=== PATIENT | male | born 1960 | race Caucasian/White ===

== ENCOUNTER → 2024-01-31 10:43 | Outpatient (REF) | payer OTHER, SELFPAY ==
[2024-01-31 12:49] LABS: % Basophils 0.7 % (0-2); % Eosinophils 3.3 % (0-6); % Immature Granulocytes 0.3 % (0-0.5); % Lymphocytes 19.3 % (20.5-51.1); % Monocytes 7.2 % (1.7-9.3); % Neutrophils 69.2 % (42.2-75.2); Absolute Basophils 0.1 10^3/uL (0-0.2); Absolute Eosinophils 0.2 10^3/uL (0-0.7); Absolute Lymphocytes 1.4 10^3/uL (1.2-3.4); Absolute Monocytes 0.5 10^3/uL (0.1-0.6); Hematocrit 38.1 % (39.0-52.0); Mean Corp Hgb Conc. 31.5 g/dL (33.0-37.0); Mean Corpuscular Hgb 24.4 pg (27.0-31.0); Mean Corpuscular Volume 77.4 fL (80.0-94.0); Nucleated Red Blood Cells % 0 % (-); Platelet Count 217 10^3/uL (130-400); Red Blood Cell Count 4.92 10^6/uL (4.70-6.10); Red Cell Dist. Width 12.8 % (11.5-14.5); White Blood Cell Count 7.2 10^3/uL (4.8-10.8)
[2024-01-31 13:13] LABS: ALT (SGPT) 17 U/L (0-50); AST (SGOT) 19 U/L (17-59); Alkaline Phosphatase 77 U/L (38-126); Blood Urea Nitrogen 23 mg/dl (9-20); Calcium 10.2 mg/dl (8.4-10.2); Carbon Dioxide 26 mmol/L (22-30); Chloride 102 mmol/L (98-107); Glucose 97 mg/dl (70-99); Magnesium 1.6 mg/dl (1.6-2.3); Potassium 5.1 mmol/L (3.5-5.1); Sodium 139 mmol/L (135-145); Total Bilirubin 0.3 mg/dl (0.2-1.3); Total Protein 6.8 g/dl (6.3-8.2); eGFR > 60.00
== END ==
LOC: HWRAD 10:43
PROVIDERS: ATTENDING PHYSICIAN Nurse Practitioner Family; FAMILY PHYSICIAN Internal Medicine
DX: R55 Syncope and collapse (principal); R42 Dizziness and giddiness; R53.1 Weakness
CPT/HCPCS: 36415; 70450; 80053; 83735; 85025

== ENCOUNTER 2024-04-08 17:10 | Inpatient (IN) | payer OTHER, SELFPAY ==
[2024-04-08 11:05] VITALS: BP 105/68
--- NOTE | 2024-04-08 11:09 | ED.PDOC.TRB ---
ED Provider Triage
-
Patient seen by provider in Triage?: Seen in Triage
Initial rapid assessment performed to facilitate ED workup from triage
62-year-old male presenting due to intractable nausea, vomiting, and diarrhea for the past 9 days. Had stool specimens collected last week that were negative for bacterial infection but ova and parasites is reportedly still pending, test be
performed at [facility]. Denies any significant abdominal pain. Feels generally weak, blood pressure has been lower at home and his blood pressure meds were discontinued recently
GEN: Well appearing, NAD, WDWN
HEENT: Oral mucosa moist, no scleral icterus
Cardiac: Regular rate
Lung: No respiratory distress, no tachypnea
MSK: No gross deformity or injuries
Skin: Good color, no pallor or jaundice, no rashes
Neuro: AO x3, moves all extremities freely
Psych: Calm, cooperative
Assessment/plan: Persistent nausea vomiting diarrhea. Stool specimens pending. Check basic labs
[2024-04-08 11:39] LABS: ALT (SGPT) 24 U/L (0-50); AST (SGOT) 18 U/L (17-59); Albumin 4.1 g/dl (3.5-5.0); Alkaline Phosphatase 138 U/L (38-126); Blood Urea Nitrogen 25 mg/dl (9-20); Calcium 9.6 mg/dl (8.4-10.2); Carbon Dioxide 21 mmol/L (22-30); Chloride 101 mmol/L (98-107); Glucose 149 mg/dl (70-99); Potassium 3.9 mmol/L (3.5-5.1); Sodium 140 mmol/L (135-145); Total Bilirubin 0.9 mg/dl (0.2-1.3); eGFR 36.81
[2024-04-08 11:55] LABS: % Basophils 0.7 % (0-2); % Eosinophils 54.8 % (0-6); % Immature Granulocytes 0.3 % (0-0.5); % Lymphocytes 11.7 % (20.5-51.1); % Monocytes 4.3 % (1.7-9.3); % Neutrophils 28.2 % (42.2-75.2); Absolute Basophils 0.1 10^3/uL (0-0.2); Absolute Eosinophils 10.5 10^3/uL (0-0.7); Absolute Immature Granulocytes 0.1 10^3/uL (0-0.05); Absolute Lymphocytes 2.3 10^3/uL (1.2-3.4); Absolute Monocytes 0.8 10^3/uL (0.1-0.6); Absolute Neutrophils 5.4 10^3/uL (1.4-6.5); Hematocrit 45.5 % (39.0-52.0); Hemoglobin 14.3 g/dL (13.0-18.0); Mean Corp Hgb Conc. 31.4 g/dL (33.0-37.0); Mean Corpuscular Hgb 23.5 pg (27.0-31.0); Mean Corpuscular Volume 74.7 fL (80.0-94.0); Mean Platelet Volume 10.4 fL (7.4-10.4); Nucleated Red Blood Cells % 0 % (-); Platelet Count 366 10^3/uL (130-400); Red Blood Cell Count 6.09 10^6/uL (4.70-6.10); Red Cell Dist. Width 14.7 % (11.5-14.5); White Blood Cell Count 19.2 10^3/uL (4.8-10.8)
[2024-04-08 13:45] VITALS: BP 136/81; BMI 27.2
[2024-04-08 13:52] LABS: Lipase 45 U/L (23-300)
--- NOTE | 2024-04-08 14:24 | ED.GENMED ---
History of Present Illness
<Candice Johnson PA-C - Last Filed: 04/08/24 17:35>
General
Chief Complaint: Abdominal Symptoms
Source: patient
Exam Limitations: none
Time Seen by Provider: 04/08/24 13:19
Nursing documentation reviewed up to this point in time: agreed with
History of Present Illness
History of Present Illness:
Patient is a 63-year-old male with history hypertension, hyperlipidemia, type 2 diabetes on Mounjaro presents to the Emergency Department for evaluation of persistent nausea, vomiting, diarrhea for the past 9 days. Patient states that he has had
frequent bouts of diarrhea and multiple instances of nausea and vomiting for the past approximately 10 days. Patient does also endorse subjective fevers at home and intermittent crampy lower abdominal pain. Patient denies any blood in his stool.
Patient was seen by his primary care provider 5 days ago where he had blood work and stool cultures performed. Salmonella and E. coli test were negative although parasitic testing is still pending. Patient is concerned that he has Giardia.
Of note�patient was recently traveling in [place] on a kayak trip approximately 7 to 10 days prior to onset of symptoms. Patient denies any ingestion of undercooked seafood.
Patient does take Mounjaro injections weekly�no recent increase in dosage.
Past History
<Candice Johnson PA-C - Last Filed: 04/08/24 17:35>
Past History
ED Past Medical History: GERD, HTN and Hypercholesterolemia
ED Past Surgical History: Tonsilectomy (And adenoids) and Urological (Vasectomy)
Social History
Tobacco: Non-smoker
Alcohol: None
Drug: None
Employment: Employed
Review of Systems
<Candice Johnson PA-C - Last Filed: 04/08/24 17:35>
Review of Systems
Allergies reviewed?: Yes
All Other Systems: ROS reviewed and negative except as documented in HPI and ROS
Phy Exam
<Candice Johnson PA-C - Last Filed: 04/08/24 17:35>
Physical Exam
Physical Exam:
Vitals: Patient's vital signs are stable. Afebrile
General: Patient is well appearing, no acute distress. Nontoxic-appearing
Skin: Warm and dry, no rashes or lesions
Head: Normocephalic, atraumatic
Eyes: Sclera nonicteric. EOMs intact. No nystagmus.
Throat: Dry mucous membranes. Protecting airway
Neck: Normal ROM, no cervical spine tenderness, no meningismus
Cardiac: Regular rate and rhythm, no murmurs.
Pulm: Normal respiratory effort, no wheezes, rales, rhonchi heard on exam.
Abdomen: Abdomen soft. No abdominal tenderness. No CVA tenderness
Extremities: No evidence of cyanosis or edema. Great distal pulses
Neuro: Grossly intact.
Psychiatric: Normal affect.
Course
<Candice Johnson PA-C - Last Filed: 04/08/24 17:35>
Orders/Labs/Results
Orders:
Orders
04/08/24 11:13
Complete Blood Count/With Diff Urgent
Comprehensive Metabolic Panel Urgent
Lipase Urgent
Comment: LIPASE ADDED ON BY FLOOR 1:20PM 04-08-24
04/08/24 13:19
Add On- LAB Urgent
Tests Added?: Lipase
04/08/24 13:32
0.9% Sodium Chloride 1000 ml [Nss] 1,000 ml IV BOLUS
US Abdomen Complete/Upper Urgent
Comment:
Reason For Exam: upper abdominal pain, +N/V/D
04/08/24 16:21
Norovirus by PCR Urgent
[facility] Source: Feces/Stool
Specimen Description:
Date Specimen was Collected: 04/08/24
Time Specimen was Collected: 17:
04/08/24 16:22
Ova & Parasites Giardia/Crypto AG [Giardia/Cryptosporidium Ag] Routine
[facility] Source: Feces/Stool
Specimen Description:
Date Specimen was Collected: 04/08/24
Time Specimen was Collected: 17:22
04/08/24 16:28
Admit/Transfer Patient As Directed
Co-Sign Provider:
Level of Care: Inpatient admission
Assign to:: Medical/Surgical
Physician / Group: angella,ranjana
Diagnosis: intract Nausea, vomitiing diarrhea mychal concern gastroenteritis/norovirus
Reason for Hospitalization: intract Nausea, vomitiing diarrhea mychal concern gastroenteritis/norovirus
Expected length of stay greater than two midnights?: Yes
ELOS- Estimated Length of Stay in days: 3
I certify the patient meets the requirements for IP care: Yes
Code Status As Directed
Resuscitation Status: Full Code
04/08/24 16:31
PRN Pain Medication Management As Directed
May give lesser potent ordered pain med per pt: Yes
preference::
Protocol:: Medication orders for pain may be administered in a
manner that supports deferring to patient preference
when the pt is:
- Requesting an ordered lesser potent pain medication.
Least to most potent pain medications are defined
as: acetaminophen < NSAID < tramadol < opioids
(morphine, oxycodone, hydromorphone).
- Requesting a lesser dose of the same medication IF
ORDERED.
- Requesting a less intrusive route of administration
if both routes are prescribed by the provider (PO <
IV).
04/08/24 16:32
Urinalysis Reflex To Culture Routine
Abnormal Lab Results
04/08/24
11:13
WBC 19.2 H 10^3/uL
(4.8-10.8)
MCV 74.7 L fL
(80.0-94.0)
MCH 23.5 L pg
(27.0-31.0)
MCHC 31.4 L g/dL
(33.0-37.0)
RDW 14.7 H %
(11.5-14.5)
Abs Immat Gran (auto) 0.1 H 10^3/uL
(0-0.05)
Absolute Monos (auto) 0.8 H 10^3/uL
(0.1-0.6)
Absolute Eos (auto) 10.5 H 10^3/uL
(0-0.7)
Neutrophils % 28.2 L %
(42.2-75.2)
Lymphocytes % 11.7 L %
(20.5-51.1)
Eosinophils % 54.8 H %
(0-6)
Carbon Dioxide 21 L mmol/L
(22-30)
BUN 25 H mg/dl
(9-20)
Creatinine 2.0 H mg/dL
(0.7-1.3)
Glucose 149 H mg/dl
(70-99)
Alkaline Phosphatase 138 H U/L
(38-126)
04/08/24 11:13
04/08/24 11:13
Vital Signs
Initial and Last Documented VS:
Initial Vital Signs
Temp Pulse Resp BP Pulse Ox
98.0 F 72 20 105/68 96
04/08/24 11:05 04/08/24 11:05 04/08/24 11:05 04/08/24 11:05 04/08/24 11:05
Last Documented Vital Signs
Temp Pulse Resp BP Pulse Ox
98.5 F 76 12 128/86 100
04/08/24 13:45 04/08/24 17:00 04/08/24 17:00 04/08/24 16:00 04/08/24 17:00
Piercelt;Zohaib De La Torre MD - Last Filed: 04/08/24 15:11>
Orders/Labs/Results
Orders:
Orders
04/08/24 11:13
Complete Blood Count/With Diff Urgent
Comprehensive Metabolic Panel Urgent
Lipase Urgent
Comment: LIPASE ADDED ON BY FLOOR 1:20PM 04-08-24
04/08/24 13:19
Add On- LAB Urgent
Tests Added?: Lipase
04/08/24 13:32
0.9% Sodium Chloride 1000 ml [Nss] 1,000 ml IV BOLUS
US Abdomen Complete/Upper Urgent
Comment:
Reason For Exam: upper abdominal pain, +N/V/D
04/08/24 16:21
Norovirus by PCR Urgent
[facility] Source: Feces/Stool
Specimen Description:
Date Specimen was Collected: 04/08/24
Time Specimen was Collected: 17:22
04/08/24 16:22
Ova & Parasites Giardia/Crypto AG [Giardia/Cryptosporidium Ag] Routine
[facility] Source: Feces/Stool
Specimen Description:
Date Specimen was Collected: 04/08/24
Time Specimen was Collected: 17:22
04/08/24 16:28
Admit/Transfer Patient As Directed
Co-Sign Provider:
Level of Care: Inpatient admission
Assign to:: Medical/Surgical
Physician / Group: ranjana perales
Diagnosis: intract Nausea, vomitiing diarrhea mychal concern gastroenteritis/norovirus
Reason for Hospitalization: intract Nausea, vomitiing diarrhea mychal concern gastroenteritis/norovirus
Expected length of stay greater than two midnights?: Yes
ELOS- Estimated Length of Stay in days: 3
I certify the patient meets the requirements for IP care: Yes
Code Status As Directed
Resuscitation Status: Full Code
04/08/24 16:31
PRN Pain Medication Management As Directed
May give lesser potent ordered pain med per pt: Yes
preference::
Protocol:: Medication orders for pain may be administered in a
manner that supports deferring to patient preference
when the pt is:
- Requesting an ordered lesser potent pain medication.
Least to most potent pain medications are defined
as: acetaminophen < NSAID < tramadol < opioids
(morphine, oxycodone, hydromorphone).
- Requesting a lesser dose of the same medication IF
ORDERED.
- Requesting a less intrusive route of administration
if both routes are prescribed by the provider (PO <
IV).
04/08/24 16:32
Urinalysis Reflex To Culture Routine
Abnormal Lab Results
04/08/24
11:13
WBC 19.2 H 10^3/uL
(4.8-10.8)
MCV 74.7 L fL
(80.0-94.0)
MCH 23.5 L pg
(27.0-31.0)
MCHC 31.4 L g/dL
(33.0-37.0)
RDW 14.7 H %
(11.5-14.5)
Abs Immat Gran (auto) 0.1 H 10^3/uL
(0-0.05)
Absolute Monos (auto) 0.8 H 10^3/uL
(0.1-0.6)
Absolute Eos (auto) 10.5 H 10^3/uL
(0-0.7)
Neutrophils % 28.2 L %
(42.2-75.2)
Lymphocytes % 11.7 L %
(20.5-51.1)
Eosinophils % 54.8 H %
(0-6)
Carbon Dioxide 21 L mmol/L
(22-30)
BUN 25 H mg/dl
(9-20)
Creatinine 2.0 H mg/dL
(0.7-1.3)
Glucose 149 H mg/dl
(70-99)
Alkaline Phosphatase 138 H U/L
(38-126)
04/08/24 11:13
04/08/24 11:13
Vital Signs
Initial and Last Documented VS:
Initial Vital Signs
Temp Pulse Resp BP Pulse Ox
98.0 F 72 20 105/68 96
04/08/24 11:05 04/08/24 11:05 04/08/24 11:05 04/08/24 11:05 04/08/24 11:05
Last Documented Vital Signs
Temp Pulse Resp BP Pulse Ox
98.5 F 76 12 128/86 100
04/08/24 13:45 04/08/24 17:00 04/08/24 17:00 04/08/24 16:00 04/08/24 17:00
<Candice Johnson PA-C - Last Filed: 04/08/24 17:35>
MDM/Problems Addressed
Differential Diagnosis Includes:
Not limited to: Viral gastroenteritis, bacterial colitis, parasitic infection, pancreatitis, cholecystitis, diverticulitis
MDM/Problems Addressed:
63-year-old male presenting with 9 days of nausea, vomiting, diarrhea. Subjective fever at home along with intermittent mild lower abdominal cramping. No bloody stool. Patient did recently travel to [facility] and was on kayak trip.
Patient did have stool studies completed by PCP 5 days ago which were negative for both Salmonella and E. coli, although parasitic infection studies are still pending. Patient concerned he has Giardia. Patient's vital signs stable on arrival. He
is afebrile. Physical exam as above. Patient is relatively well-appearing, although does have dry mucous membranes. Patient is conversational and nontoxic-appearing. Abdomen is soft and nontender. Heart regular rate and rhythm. Lungs clear
bilaterally. Patient is perfusing well. Differential broad at this time although given freshwater exposure�possibility of parasitic stool infection versus viral gastroenteritis. Given patient is on Mounjaro�concern for possible cholecystitis
burst pancreatitis. Lower suspicion for acute intra-abdominal infection given benign abdominal exam and patient is afebrile. Will check labs, abdominal ultrasound. Will give IV fluids. Will closely monitor and reassess
Chronic conditions affecting care:
Hypertension, hyperlipidemia, type 2 diabetes
Acute Exacerbation and/or Progression of Chronic Illness:
N/A
<Candice Johnson PA-C - Last Filed: 04/08/24 17:35>
*Radiology
Radiology exam reviewed: preliminary read by ED provider and radiology read reviewed
*Pulse Oximetry
Patient hypoxic: no
*EKG
Interpreted by ED Provider?: NA
*Customer Engineering Specialist Interpretation
Rate: Customer Engineering Specialist- N/A
*Critical Care Note
Total Time (30-74mins, 75-104mins- exclusive of procedures): Not Applicable
<Candice Johnson PA-C - Last Filed: 04/08/24 17:35>
Patient Management
Discussion with other providers: Hospitalist
Escalation/DeEscalation of care consider admission/obs:
Admit for IV hydration/further monitoring for MYCHAL
<Candice Johnson PA-C - Last Filed: 04/08/24 17:35>
Update Note
Update Note:
Update: Labs reviewed leukocytosis of 19.2 with an eosinophilia. Patient does have an MYCHAL likely secondary to dehydration from GI losses. Abdominal ultrasound for any acute abnormalities. Patient unable to provide stool sample while in emergency
department today. Given MYCHAL�patient will benefit from admission for IV hydration. Will hold on antibiotics pending stool results from primary care. Patient admitted to hospitalist in stable condition. Patient seen with attending physician.
ED Attending Note
<Candice Johnson PA-C - Last Filed: 04/08/24 17:35>
-
Portions of this chart may have been created with voice recognition software.� Occasional wrong word or��sound alike� substitutions may have occurred due to the inherent limitations of voice recognition software.
<Zohaib De La Torre MD - Last Filed: 04/08/24 15:11>
ED Attending Note
Patient seen and examined by attending physician: Yes
I performed the substantive portion of visit, reviewed & personally made and approve the management plan that is documented in note by myself or LACY.: Yes
ED Attending Note:
Patient is a 63 old male with history of diabetes presenting to the emergency department with nausea vomiting diarrhea for about 10 days. Patient states that he traveled and was kayaking in [place] prior to the onset of symptoms. He is a [place]. He also is on Mounjaro. He denies any fevers or chills. He does state that his stool is watery and foul-smelling. He does state that he has more bloating. Did have stool testing done outpatient. Fungal and E. coli are negative however
his parasite testing is still pending. He has at least 5-6 episodes a day. He does feel dehydrated. He has not syncopized. No lightheadedness or dizziness. Patient was sent in by his primary care doctor as they were concerned about dehydration
as well as concern for Giardia.
GENERAL: in no acute distress
HEENT: normocephalic, extraocular movements intact, dry oral mucosa
NECK: normal inspection
RESPIRATORY: no respiratory distress, clear to auscultation bilaterally
CARDIOVASCULAR: regular rate and rhythm
ABDOMEN/: soft, non-distended, non-tender to palpation, no rebound or guarding
EXTREMITIES: non-tender, no edema/swelling
NEUROLOGIC: awake and alert, moves all extremities
SKIN: warm
Patient is a 63-year-old man presenting to the emergency department 10 days of nausea vomiting diarrhea. Vitals unremarkable and exam does show a man resting comfortably though does have dry oral mucosa. Concern for gastroenteritis versus
parasitic infection. Blood work obtained prior to evaluation does show eosinophilia. He does have an MYCHAL. Given the dehydration patient will benefit from admission. Abdominal ultrasound pending.
Discharge Plan
Departure
Patient Disposition: Admit
Date of Disposition: 04/08/24
Time of Disposition: 15:18
Presentation/result/management discussed w/ accepting MD/DO: Hospitalist
Discharge Problem:
MYCHAL (acute kidney injury), Nausea, vomiting and diarrhea
Interventions
Interventions:
*Risk Screen - Suicide Last Done: 04/08/24 13:45
*General Assessment Last Done: 04/08/24 13:45
*Neglect/Abuse Screening Last Done: 04/08/24 13:45
ED- Fall Risk Assessment Last Done: 04/08/24 13:45
*ED COVID-19 Vaccine History Last Done: 04/08/24 13:45
ZE-Gpceak-Elwfbparyu Assessment Last Done: 04/08/24 13:45
[2024-04-08 15:16] VITALS: BP 94/65
[2024-04-08] MEDS: NSS 1000 IV ×2 (15:19→18:09)
--- NOTE | 2024-04-08 15:54 | HPS.HSE ---
Addendum entered and electronically signed by Javier Velez MD 04/08/24 16:43:
I saw and examined the patient.
The FEED HOUSE SUPERVISOR or PA's note was reviewed and I agree with the note.
Comment:
63M a/w acute N/V/ D
T 98.5, 136/81
WBC 19.2, HR 72
Abdominal US complete: Unremarkable
IMP and Plan
Concern for gastroenteritis viral origin ?
Recent kayaking trip and [place] 03/22/2024 symptoms started 03/30
- no recent antibiotics, no raw foods
- s/p outpatient stool studies Salmonella , E. coli negative, C. difficile, Shigella negative .
- Ova and parasite testing pending we will check here
- Check norovirus
- IV NSS 100 cc/h
BRUNO 2/2 volume depletion from intractable nausea, vomiting, diarrhea
Creat 2/bun 25
-IV NS trend Cr
-Follow BMP
-Held HCTZ , lisinopril, meloxicam and metformin
DVT Px SCD
Full code
IP MS
Original Note:
Family Physician
-
Family Physician: Essie Le
Chief Complaint
-
nausea , vomiting diarrhea watery brown
History of Present Illness
63-year-old male complaining of persistent nausea, vomiting and diarrhea over the past 10 days starting 03/30. He also reports subjective fevers at home with intermittent cramping in his lower abdomen. He is currently on Mounjaro for type 2
diabetes. He reports traveling to [place] on a kayak trip approximately on 03/22 for a wedding where he went kayaking . he states his son friend has the same symptoms but they resolved. He was able to eat eggs , cheese bagel, Cheesburger ,
creme soup with Pheasant meat on 03/29 then developed symptoms where he cannot eat dairy or he vomits . Had blood work and stool cultures with Salmonella , Cdiff neg, wbc , shigella, E. coli negative although ova and parasites, norovirus are still
pending. He reports headaches but are chronic, neg nuchal rigidity, neg rash or tic bites, he denies chest pain, palpitations, shortness breath, cough, urinary symptoms.
He has past medical history of hypertension, HLD, DM2, GERD
Medical History
Past Medical History
Past Medical History: Reports Other
Additional Past Medical History:
hypertension
HLD
DM2
GERD
Past Surgical History: Reports Other
Additional Past Surgical History:
Vasectomy 2004
Tonsillectomy adenoidectomy
Social History
Tobacco: Non-smoker
Alcohol: Occasional
Drug: None
Personal:
Living: With Family
Employment: Employed
Family History
Family History: Not pertinent
Allergies / Home Medications
Allergies reflects when Allergies were last updated in [employer].
Home Medications with original date entered in [employer]
Allergy/Medication List:
Allergies
Allergy/AdvReac Type Severity Reaction Status Date / Time
shellfish derived Allergy Anaphylaxis- Verified 04/08/24 11:06
diarrhea
venom-honey bee Allergy Anaphylaxis Verified 04/08/24 11:06
[bee venom (honey bee)]
Home Medications
omeprazole 40 mg capsule,delayed release 40 mg PO DAILYPRN PRN GERD 10/22/17
pravastatin 40 mg tablet 40 mg PO DAILY 10/22/17
cholecalciferol (vitamin D3) 25 mcg (1,000 unit) tablet 25 mcg PO DAILY 04/08/24
ezetimibe 10 mg tablet 10 mg PO DAILY 04/08/24
metformin 500 mg tablet,extended release 24 hr 500 mg PO BID 04/08/24
ondansetron 8 mg disintegrating tablet 8 mg PO TIDPRN PRN nausea/vomiting 04/08/24
tirzepatide 5 mg/0.5 mL subcutaneous pen injector (Mounjaro) 5 mg SC ROSALES 04/08/24
Review of Systems
-
History Source: Patient
A 12 point ROS was completed and negative except as noted: Yes
Constitutional: Reports Chills; Denies Fatigue
EENT: Denies Sore Throat or Runny Nose
Respiratory: Denies Cough or Trouble Breathing
Cardiac: Denies Chest Pain, Diaphoresis, Palpitations or Syncope
Abdomen/GI: Reports Abdominal Pain (Generalized), Nausea, Vomiting (After eating dairy) and Diarrhea (Watery black to llanes in color); Denies Constipated or Bloody Stools
: Denies Dysuria, Frequency, Flank Pain, Incontinence, Difficulty Voiding or Urgency
Musculoskeletal: Denies Joint Pain, Muscle Pain or Edema
Skin: Denies Itching or Rash
Neurological: Denies Dizzy, Headache or Weakness
Endocrine: Reports No Symptoms
Hematologic/Lymphatic: Reports No Symptoms
Psych: Reports Calm
Physical Exam
Vital Signs
Vital Signs
Temp Pulse Resp BP Pulse Ox
98.5 F 72 20 136/81 99
04/08/24 13:45 04/08/24 13:45 04/08/24 13:45 04/08/24 13:45 04/08/24 13:45
Physical Exam
General: Comfortable and Conversant; No Pain, Fever or Chills
HEENT: NormoCephalic, Anicteric, Moist mucous membranes, PERRLA, [place] Conjunctivae and No Ptosis
Respiratory: Clear; No Wheezes, Rales or Rhonchi
Cardiac: S1/S2 and Regular Rhythm; No Murmur, Rub, Gallop or Peripheral Edema
GI: Soft, Non Tender, Non Distended, Normal Bowel Sounds and No Hepatosplenomegaly
Rectal: Deferred by Provider
Genito-urinary: Deferred by me
Musculoskeletal: No Clubbing, No Cyanosis and No Edema
Skin: Warm and Dry; No Rash or Jaundice
Neuro: AO x 3, No Motor Deficits, Nonfocal/grossly intact and No Sensory Deficits; No Slurred Speech, Facial Droop or Tremors
Psych: Calm
Laboratory Results
-
04/08/24 11:13
04/08/24 11:13
Laboratory Results
Total Bilirubin 0.9 mg/dl (0.2-1.3) 04/08/24 11:13
AST 18 U/L (17-59) 04/08/24 11:13
ALT 24 U/L (0-50) 04/08/24 11:13
Alkaline Phosphatase 138 U/L (38-126) H 04/08/24 11:13
Lipase 45 U/L (23-300) 04/08/24 11:13
Impression/Plan
-
Impression/plan:
Admit to [facility]
#Abdominal pain with intractable nausea, vomiting, diarrhea x 10 days Concern for gastroenteritis versus viral gastroenteritis
Recent [place] trip and [place] 03/22/2024 symptoms started 03/30
He denies recent antibiotics, no raw foods
-Had outpatient stool studies Salmonella , E. coli negative, C. difficile, Shigella negative .
-Ova and parasite testing pending we will check here
-Check norovirus
-IV NSS 100 cc/h
-WBC 19.2, HR 72, temp 98.5, 136/81
Abdominal ultrasound complete: Unremarkable
#BRUNO 2/2 volume depletion from intractable nausea, vomiting, diarrhea
Creat 2/bun 25
-IV NSS 100 cc/h
-Follow BMP
-Hold HCTZ 12.5 mg daily, lisinopril 10 mg daily, meloxicam 7.5 mg daily current, metformin 500 mg twice daily
#HTN�benign
BP 136/81
-Hold HCTZ 12.5 mg daily, lisinopril 10 mg daily
-Continue verapamil 120 mg twice daily with hold parameters
#GERD
Takes omeprazole 40 mg as needed
#DM 2
Accu-Cheks SSI, check HgbA1c
Patient currently on Mounjaro
-Hold glipizide, metformin 500 mg twice daily
#HLD
-Continue pravastatin 40 mg daily
DVT prophylaxis
SCDs
Full code
[2024-04-08 16:00] VITALS: BP 128/86
--- NOTE | 2024-04-08 17:30 | PTCARENOTE ---
Patient admitted from ED into room 426, ambulated from WC to bed. AAOx3, denying any pain or nausea at this time. Oriented pt to room and plan of care. Call buchanan within reach.
[2024-04-08 17:51] VITALS: BP 121/81; BMI 29.0
[2024-04-08 18:28] LABS: Glucose - Point of Care 99 mg/dl (70-99)
[2024-04-08] MEDS: HEPARIN 5000 UNITS SC (19:27)
[2024-04-08 20:09] LABS: Urine Albumin Negative (Neg - Trace); Urine Bilirubin 1+ (Negative); Urine Character Clear (Clear); Urine Color Yellow; Urine Glucose Negative (Negative); Urine Ketone Negative (Negative); Urine Leukocyte Negative (Negative); Urine Nitrite Negative (Negative); Urine Occult Blood Negative (Negative); Urine Urobilinogen Negative (Neg - 1+)
[2024-04-08 21:48] LABS: Glucose - Point of Care 89 mg/dl (70-99)
[2024-04-08 23:08] VITALS: BP 137/90
--- NOTE | 2024-04-09 03:16 | DOWNTIME ---
There was a 5 CUPS and some sugar Client Darklight Inspector Downtime on 04/09/2024 from 0100 to 04/09/2024 at 0300. Downtime documentation of patient's care, including medication administrations, has been reconciled in the electronic record per guidelines. Refer to the
patient's paper chart under the miscellaneous tab to see printed paper medication records and downtime forms.
[2024-04-09] MEDS: NSS 1000 IV (04:28)
[2024-04-09 04:48] VITALS: BMI 28.7
[2024-04-09 06:00] VITALS: BMI 28.7
[2024-04-09 07:40] VITALS: BP 146/90
[2024-04-09 07:40] LABS: Glucose - Point of Care 86 mg/dl (70-99)
[2024-04-09] MEDS: PRAVACHOL 40 MG PO (08:28)
[2024-04-09] MEDS: VITAMIN D3 (cholecalciferol) 25 MCG PO (08:28)
[2024-04-09] MEDS: ZETIA 10 MG PO (08:28)
[2024-04-09] MEDS: COMPAZINE 10 MG IV (08:28)
[2024-04-09] MEDS: HEPARIN 5000 UNITS SC (08:29)
[2024-04-09 08:39] LABS: Hematocrit 36.4 % (39.0-52.0); Hemoglobin 11.6 g/dL (13.0-18.0); Mean Corp Hgb Conc. 31.9 g/dL (33.0-37.0); Mean Corpuscular Hgb 23.1 pg (27.0-31.0); Mean Corpuscular Volume 72.5 fL (80.0-94.0); Mean Platelet Volume 10.4 fL (7.4-10.4); Platelet Count 279 10^3/uL (130-400); Red Blood Cell Count 5.02 10^6/uL (4.70-6.10); Red Cell Dist. Width 14.3 % (11.5-14.5); White Blood Cell Count 18.3 10^3/uL (4.8-10.8)
[2024-04-09 09:02] LABS: Glycohemoglobin (HgbA1c) 5.7 % (4.0-5.6)
[2024-04-09 09:11] LABS: Blood Urea Nitrogen 19 mg/dl (9-20); Calcium 8.6 mg/dl (8.4-10.2); Carbon Dioxide 22 mmol/L (22-30); Chloride 106 mmol/L (98-107); Estimated Creatinine Clearance 54 ml/min; Glucose 87 mg/dl (70-99); Potassium 3.7 mmol/L (3.5-5.1); Sodium 140 mmol/L (135-145); eGFR > 60.00
[2024-04-09 09:43] LABS: % Basophils 0.4 % (0-2); % Immature Granulocytes 0.3 % (0-0.5); % Lymphocytes 12.8 % (20.5-51.1); % Monocytes 3.4 % (1.7-9.3); % Neutrophils 22.1 % (42.2-75.2); Absolute Basophils 0.1 10^3/uL (0-0.2); Absolute Eosinophils 11.2 10^3/uL (0-0.7); Absolute Immature Granulocytes 0.1 10^3/uL (0-0.05); Absolute Lymphocytes 2.4 10^3/uL (1.2-3.4); Absolute Monocytes 0.6 10^3/uL (0.1-0.6); Nucleated Red Blood Cells % 0 % (-)
[2024-04-09 11:37] LABS: Glucose - Point of Care 88 mg/dl (70-99)
--- NOTE | 2024-04-09 11:53 | CM ---
Patient seen bedside with , initial assessment completed. Patient resides with in a multiple story home, three steps to enter. Patient denies DME other than CPAP through [facility]. Patient denies VN or SNF history. Patient PCP Essie
Mimi, pharmacy [facility], confirms prescription coverage. Patient denies food, housing/utility, transportation insecurities at home. inquiring if patient can take imodium prior to flight as patient is traveling this weekend,
relayed to nurse. CM will continue to follow for all discharge planning needs.
Plan; home no needs.
[2024-04-09 12:51] VITALS: BP 152/87
--- NOTE | 2024-04-09 14:47 | W.PN.HOSP.TC ---
Today's Communication/Plan
-
d/c home
Assessment / Plan
Assessment / Plan
1. Acute diarrhea
Nausea/vomiting - improved
-Patient have ongoing diarrhea for the last 10 days, currently patient started having 3-4 bowel moods a day
-Patient have noted in between soft bowel movement, no bleeding issues
-Better stool culture negative in PCP office. Ova/parasite/norovirus/Giardia neg
-As have soft BM, will not be checking Cdiff. No recent abx exposure
-Have some leukocytosis but remains afebrile
-Nausea vomiting has improved and patient able to tolerate diet without any problem
-Patient instructed to hold metformin/Ozempic until GI symptoms better
-Advised to avoid dairy products as can have post infectious lactose deficiency
-Patient to follow-up with GI office for follow-up if continues to have episodic diarrhea.
2. Type II DM
-Hold metformin/Mounjaro until GI symptoms better
3. GERD
-maintain on omeprazole
4. HLD
-continue on pravastatin/ezetimibe
DVT PPX - scd
Full code
Contacted primary care physician office Dr. Le, not in today, left VM with office staff for a call back request
More than 30 minutes spent in discharge including
Final examination of the patient
Summarizing hospital stay
Instructions for continuing care to all relevant caregivers
Preparation of discharge records, prescriptions, and referral forms
Total time spent (in minutes): 38 mins
Anticipated Discharge: Today
Subjective/Interval History
-
Date of Service: April 09, 2024
Patient able to tolerate diet
Some diarrhea although in between having soft stool
No nausea vomiting
Afebrile in the night
Objective Data
-
Labs:
Laboratory Results
04/09/24
08:14
WBC 18.3 H
Hgb 11.6 L
Hct 36.4 L
Plt Count 279 D
Sodium 140
Potassium 3.7
Chloride 106
Carbon Dioxide 22
BUN 19
Creatinine 1.3
Glucose 87
Calcium 8.6
Vital Signs:
Vital Signs
Temp Pulse Resp BP Pulse Ox
97.5 F 67 18 152/87 99
04/09/24 12:51 04/09/24 12:51 04/09/24 12:51 04/09/24 12:51 04/09/24 12:51
I&O
04/08/24 04/09/24 04/10/24
06:59 06:59 06:59
Intake Total 1440 / 1440 480 / 480
Output Total 575 / 575
Balance 865 / 865 480 / 480
Review of Systems
-
Respiratory: Reports No Symptoms
Cardiac: Reports No Symptoms
Abdomen/GI: Reports No Symptoms
Physical Exam
-
General: No Apparent Distress and Comfortable
HEENT: Negative Oxygen
Respiratory: Clear to Auscultation
Cardiac: Regular Rhythm and S1/S2; Negative Murmur or Rub
GI: Soft, Nontender, Nondistended and Normal Bowel Sounds
Musculoskeletal: No Edema
Neuro: Awake, Alert, Oriented, No Motor Deficits and Nonfocal/Grossly Intact
Psych: Calm
== END 2024-04-09 14:07 | disposition home or self-care (01) | DRG 392 ==
LOC: 4 WEST ACU 17:10
PROVIDERS: Clinical Nurse Specialist Family Health; Physician Assistant; ADMITTING PHYSICIAN Internal Medicine; ATTENDING PHYSICIAN Hospitalist; EMERGENCY PHYSICIAN Student in an Organized Health Care Education/Training Program; FAMILY PHYSICIAN Internal Medicine
DX: K52.9 Noninfective gastroenteritis and colitis, unspecified (principal); N17.9 Acute kidney failure, unspecified; I10 Essential (primary) hypertension; K21.9 Gastro-esophageal reflux disease without esophagitis; E78.00 Pure hypercholesterolemia, unspecified; E11.9 Type 2 diabetes mellitus without complications; E86.0 Dehydration; D72.10 Eosinophilia, unspecified; Z79.84 Long term (current) use of oral hypoglycemic drugs; Z79.899 Other long term (current) drug therapy
CPT/HCPCS: 76700; 80048; 80053; 81003; 82962; 83036; 83690; 85025; 87328; 87329; 87798; 96360; 99285

== ENCOUNTER 2024-06-16 06:43 | Day surgery (SDC) | payer OTHER, SELFPAY | END 2024-06-16 10:23 | disposition home or self-care (01) | LOC: GI 06:43 | PROVIDERS: ATTENDING PHYSICIAN Internal Medicine Gastroenterology | DX: Z12.11 Encounter for screening for malignant neoplasm of colon (principal); D12.0 Benign neoplasm of cecum; D12.2 Benign neoplasm of ascending colon; K57.30 Diverticulosis of large intestine without perforation or abscess without bleeding; K64.8 Other hemorrhoids; D50.9 Iron deficiency anemia, unspecified; K29.50 Unspecified chronic gastritis without bleeding; K21.9 Gastro-esophageal reflux disease without esophagitis; K22.89 Other specified disease of esophagus; K44.9 Diaphragmatic hernia without obstruction or gangrene; K31.89 Other diseases of stomach and duodenum | CPT/HCPCS: 45385; 45380; 43239; 88305; 88342 ==

== ENCOUNTER → 2025-01-27 14:03 | Outpatient (REF) | payer OTHER, SELFPAY | LOC: PAVMRI 14:03 | PROVIDERS: ATTENDING PHYSICIAN Physician Assistant; FAMILY PHYSICIAN Internal Medicine | DX: M54.16 Radiculopathy, lumbar region (principal) | CPT/HCPCS: 72148 ==